=== PATIENT | male | born 1940 ===

== ENCOUNTER 2025-02-17 16:48 | Inpatient (IN) | payer MEDICARE, BC ==
[2025-02-17 17:52] LABS: BASOPHILS PERCENT AUTO 0.2 % (0.0-1.0); EOSINOPHILS PERCENT AUTO 9.2 % (1.0-3.0); LYMPHOCYTES PERCENT AUTO 15.3 % (20.5-50.1); MONOCYTES PERCENT AUTO 11.3 % (2-8); NEUTROPHILS PERCENT AUTO 64.0 % (42.2-75.2); PLATELET COUNT,PLT 277 10^3/uL (150-450); RED BLOOD CELL COUNT 4.08 10^6/uL (4.6-6.2); WHITE BLOOD CELL COUNT,WBC 9.9 10^3/uL (5.0-10.0)
[2025-02-17 17:57] LABS: ALANINE AMINOTRANSFERASE,ALT 23 U/L (16-63); ASPARTATE AMNIOTRANSFERASE,AST 19 U/L (15-37); BILIRUBIN TOTAL 0.3 mg/dL (0.2-1.0); BLOOD UREA NITROGEN,BUN 38 mg/dL (7-18); CARBON DIOXIDE,CO2 28 mmol/L (21-32); CHLORIDE,CL 105 mmol/L (98-107); CREATININE 1.69 mg/dL (0.70-1.30); GLUCOSE RANDOM 88 mg/dL (70-99); POTASSIUM,K 5.1 mmol/L (3.5-5.1); PROTEIN TOTAL,TP 7.2 g/dL (6.4-8.2); SODIUM,NA 142 mmol/L (136-145)
[2025-02-17 17:59] LABS: A/G RATIO 0.80; ESTIMATED GFR 40 mL/min (>=60)
[2025-02-17 19:58] LABS: FOLIC ACID 7.1 ng/mL (8.6-58.9); T4 FREE 0.96 ng/dL (0.76-1.46); TSH ULTRASENSITIVE 3.69 uIU/mL (0.36-3.74)
[2025-02-17] MEDS: Heparin Sodium 5,000 Units/ML Vial SUBCUT SCH (21:07)
[2025-02-18 06:22] LABS: BASOPHILS PERCENT AUTO 0.3 % (0.0-1.0); EOSINOPHILS PERCENT AUTO 7.8 % (1.0-3.0); LYMPHOCYTES PERCENT AUTO 17.8 % (20.5-50.1); MONOCYTES PERCENT AUTO 10.9 % (2-8); NEUTROPHILS PERCENT AUTO 63.2 % (42.2-75.2); PLATELET COUNT,PLT 246 10^3/uL (150-450); RED BLOOD CELL COUNT 4.11 10^6/uL (4.6-6.2); WHITE BLOOD CELL COUNT,WBC 10.6 10^3/uL (5.0-10.0)
[2025-02-18 06:33] LABS: BLOOD UREA NITROGEN,BUN 33.0 mg/dL (7-18); CARBON DIOXIDE,CO2 26.0 mmol/L (21-32); CHLORIDE,CL 106.0 mmol/L (98-107); CREATININE 1.58 mg/dL (0.70-1.30); EST CRCL DRUG DOSING (CG) 34.8 mL/min; GLUCOSE RANDOM 77.0 mg/dL (70-99); POTASSIUM,K 4.5 mmol/L (3.5-5.1); SODIUM,NA 143.0 mmol/L (136-145)
[2025-02-18 06:36] LABS: ESTIMATED GFR 43.0 mL/min (>=60)
[2025-02-18] MEDS: Cholecalciferol (Vitamin D3) 25 MCG Tab PO SCH (08:29)
[2025-02-18] MEDS: D5 1/2 NS w/ 10 mEq/L KCl 1,000 ML IV SCH (11:02)
[2025-02-18 14:42] LABS: APPEARANCE,URINE CLEAR (CLEAR); GLUCOSE,URINE NEGATIVE (NEGATIVE); OCCULT BLOOD,URINE NEGATIVE (NEGATIVE)
[2025-02-19 06:30] LABS: BASOPHILS PERCENT AUTO 0.3 % (0.0-1.0); EOSINOPHILS PERCENT AUTO 7.4 % (1.0-3.0); LYMPHOCYTES PERCENT AUTO 22.2 % (20.5-50.1); MONOCYTES PERCENT AUTO 9.9 % (2-8); NEUTROPHILS PERCENT AUTO 60.2 % (42.2-75.2); PLATELET COUNT,PLT 269 10^3/uL (150-450); RED BLOOD CELL COUNT 4.09 10^6/uL (4.6-6.2); WHITE BLOOD CELL COUNT,WBC 7.7 10^3/uL (5.0-10.0)
[2025-02-19 06:42] LABS: BLOOD UREA NITROGEN,BUN 23.0 mg/dL (7-18); CARBON DIOXIDE,CO2 30.0 mmol/L (21-32); CHLORIDE,CL 105.0 mmol/L (98-107); CREATININE 1.29 mg/dL (0.70-1.30); EST CRCL DRUG DOSING (CG) 42.63 mL/min; GLUCOSE RANDOM 87.0 mg/dL (70-99); POTASSIUM,K 4.3 mmol/L (3.5-5.1); SODIUM,NA 142.0 mmol/L (136-145)
[2025-02-19 06:43] LABS: ESTIMATED GFR 55.0 mL/min (>=60)
== END 2025-02-21 13:25 | disposition home or self-care (01) | DRG 56 ==
LOC: DL.ED 16:48 → DL.MS 18:45 → OBSVTOIN 02-18 11:00
PROVIDERS: ADMIT Internal Medicine; ATTEND Internal Medicine
DX: G30.9 Alzheimer's disease, unspecified (principal); G92.8 Other toxic encephalopathy; B34.9 Viral infection, unspecified; F02.811 Dementia in other diseases classified elsewhere, unspecified severity, with agitation; Z66 Do not resuscitate; H54.7 Unspecified visual loss; I10 Essential (primary) hypertension; Z79.890 Hormone replacement therapy; E78.00 Pure hypercholesterolemia, unspecified; K59.00 Constipation, unspecified; E03.9 Hypothyroidism, unspecified; E53.8 Deficiency of other specified B group vitamins; D72.829 Elevated white blood cell count, unspecified; E86.0 Dehydration; Z79.899 Other long term (current) drug therapy; Z79.82 Long term (current) use of aspirin; Z86.16 Personal history of COVID-19
CPT/HCPCS: 36415 ×2; 70450; 71046; 72125; 72170; 80048; 80053; 82607; 82746; 83735 ×2; 84439; 84443; 84484; 85025 ×2; 87428; 93005; 93010; 99223; 99284; 99285; A9270 ×9; J1630; J1644 ×2; J3360; J3486; J7030; 81003; 96365; 96372; 96375; 99233; 99239; G0378; J1808; J3480